=== PATIENT | female | born 1960 | race American Indian/Alaskan Native ===

== ENCOUNTER 2017-10-30 09:59 | Emergency (ER) | payer MEDICARE, OTHER ==
[2017-10-30 10:21] VITALS: BMI 20.5
[2017-10-30 10:32] VITALS: O2SAT 100
--- NOTE | 2017-10-30 11:02 | C.PDOC ---
History Of Present Illness 56yo female, brought to ER from the mental health clinic, as she appeared to be stressed. Per patient, she denies any suicidal ideation. She is calm and cooperative in ER and denies any medical complaints. Time Seen by Provider: 10/30/17 10:10 Chief Complaint (Nursing): Psychiatric Evaluation History Per: Patient History/Exam Limitations: no limitations Current Symptoms Are (Timing): Gone Suicide/Self Injury Attempted (Context): None Modifying Factor(s): None Severity: None Associated Symptoms: denies: Depression, Suicidal Thoughts, Suicidal Plan Additional History Per: Patient Past Medical History Reviewed: Historical Data, Nursing Documentation, Vital Signs Vital Signs: Last Vital Signs Temp 98 F 10/30/17 11:42 Pulse 56 L 10/30/17 11:42 Resp 16 10/30/17 11:42 BP 158/94 H 10/30/17 11:42 Pulse Ox 100 10/30/17 11:42 - Medical History PMH: Anemia, Asthma (not using inhaler), Back Problems, Depression, HTN Surgical History: No Surg Hx Family History: States: Unknown Family Hx - Social History Hx Tobacco Use: Yes Hx Alcohol Use: No Hx Substance Use: No - Immunization History Hx Tetanus Toxoid Vaccination: No Hx Influenza Vaccination: No Hx Pneumococcal Vaccination: No Review Of Systems Except As Marked, All Systems Reviewed And Found Negative. Constitutional: Negative for: Fever, Chills Cardiovascular: Negative for: Chest Pain Respiratory: Negative for: Shortness of Breath Gastrointestinal: Negative for: Abdominal Pain Psych: Negative for: Depression, Suicidal ideation Physical Exam - Physical Exam Appears: Non-toxic, No Acute Distress Skin: Normal Color Head: Atraumatic, Normacephalic Eye(s): bilateral: Normal Inspection Neck: Normal ROM, Supple Chest: Symmetrical Cardiovascular: Rhythm Regular Respiratory: Normal Breath Sounds Gastrointestinal/Abdominal: Normal Exam, Soft, No Tenderness Back: Normal Inspection Extremity: Normal ROM Neurological/Psych: Oriented x3, Normal Speech, Normal Cognition, Normal Motor, Normal Sensation, Other (no acute psychosis) ED Course And Treatment O2 Sat by Pulse Oximetry: 100 (RA) Pulse Ox Interpretation: Normal Progress Note: farmworker general at bedside and will evaluate the patient. Medical Decision Making Medical Decision Making: cleared by crisis. no si hi. Disposition - Disposition Disposition: HOME/ ROUTINE Disposition Time: 02:00 Condition: STABLE Additional Instructions: follow u p as instructed by crisis. return to er with worsening symptoms or concerns. Instructions: Schizoaffective Disorder Forms: [facility] (Kazakh) - Clinical Impression Clinical Impression: Schizoaffective disorder - Scribe Statement The provider has reviewed the documentation as recorded by the Laxmi Quevedo Provider Attestation: All medical record entries made by the Laxmi were at my direction and personally dictated by me. I have reviewed the chart and agree that the record accurately reflects my personal performance of the history, physical exam, medical decision making, and the department course for this patient. I have also personally directed, reviewed, and agree with the discharge instructions and disposition.
[2017-10-30 11:43] VITALS: BP 158/94; PULSE 56; RESP 16; TEMP 98
== END 2017-10-30 11:43 | disposition home or self-care (01) ==
LOC: C.ER 09:59
DX: F25.9 Schizoaffective disorder, unspecified (principal)